=== PATIENT | female | born 1985 | race Caucasian/White ===

== ENCOUNTER 2016-11-04 15:27 | Emergency (ER) | payer OTHER, SELFPAY | END 2016-11-04 20:28 | disposition home or self-care (01) | LOC: FER 15:27 | DX: R51 Headache (principal) | CPT/HCPCS: 70450; J1100; J1885; J2800 ==

== ENCOUNTER 2021-07-05 14:00 | Inpatient (IN) | payer OTHER ==
[~2021-07-05] VITALS: Ht 160 cm; Wt 73.7 kg
[2021-07-05 16:28] LABS: BASOPHIL 0 % (0-2); EOSINOPHIL 0 % (0-5); HCT 41.8 % (37.0-47.0); HGB 13.9 g/dl (12.5-16.0); MCH 30.6 pg (25.0-31.0); MCHC 33.3 g/dL (32.0-36.0); MCV 92.1 fL (78.0-100.0); MONOCYTE 2.4 % (0-12); MPV 10.4 fL (6.0-9.5); NEUTROPHIL 83.1 % (41-80); NRBC 0; PLT 242 K/uL (150-400); RBC 4.54 M/uL (4.20-5.40); RDW 12.1 % (11.5-14.0)
[2021-07-05 16:29] LABS: LYMPHOCYTE 14.1 % (15-48)
[2021-07-05 16:59] LABS: BILIRUBIN NEGATIVE (NEGATIVE); BLOOD TRACE-INTACT Ery/uL (NEGATIVE); CLARITY CLEAR (CLEAR); COLOR YELLOW (YELLOW); GLUCOSE (U) NORMAL (NORMAL); LEUKOCYTES NEGATIVE Leu/uL (NEGATIVE); NITRITE NEGATIVE (NEGATIVE); PROTEIN NEGATIVE (NEGATIVE); SPECIFIC GRAVITY <=1.005 (1.001-1.030); UROBILINOGEN 0.2 mg/dL (0.2-1.0); pH 6.5 (5.0-9.0)
[2021-07-05 17:05] LABS: BACTERIA TRACE; URINARY WBC RARE
[2021-07-05 17:16] LABS: ALBUMIN 3.6 g/dL (3.4-5.0); BILIRUBIN - TOTAL 0.4 mg/dL (0.2-1.0); BUN/CREAT RATIO (CALC) 11.1 RATIO; CREATININE 0.63 mg/dL (0.51-0.95); GLOBULIN (CALCULATION) 4.1 g/dL; POTASSIUM 3.6 mmol/L (3.5-5.1); TOTAL PROTEIN 7.7 g/dL (6.4-8.2)
[2021-07-05] MEDS ORDERED: BUSPAR5 MG PO (21:10)
[2021-07-05] MEDS ORDERED: SINEQUAN10 MG PO (21:12)
[2021-07-05 21:24] LABS: INFLUENZA A NAA NEGATIVE (NEGATIVE)
[2021-07-05 21:25] LABS: CORONAVIRUS 2019 SARS-COV-2 POSITIVE (NEGATIVE)
[2021-07-06 06:37] LABS: BASOPHIL 0 % (0-2); EOSINOPHIL 0 % (0-5); HCT 37.9 % (37.0-47.0); HGB 12.4 g/dl (12.5-16.0); LYMPHOCYTE 17.3 % (15-48); MCH 30.2 pg (25.0-31.0); MCHC 32.7 g/dL (32.0-36.0); MCV 92.4 fL (78.0-100.0); MONOCYTE 3.8 % (0-12); MPV 10.6 fL (6.0-9.5); NEUTROPHIL 78.3 % (41-80); NRBC 0; PLT 223 K/uL (150-400); RDW 12.3 % (11.5-14.0); WBC 3.4 K/uL (4.0-10.5)
[2021-07-06 07:38] LABS: ALBUMIN 2.7 g/dL (3.4-5.0); BILIRUBIN - TOTAL 0.3 mg/dL (0.2-1.0); BUN/CREAT RATIO (CALC) 12.2 RATIO; C-REACTIVE PROTEIN 12.3 mg/dL (<=0.90); CREATININE 0.49 mg/dL (0.51-0.95); GLOBULIN (CALCULATION) 3.6 g/dL; MAGNESIUM 2.2 mg/dL (1.8-2.4); POTASSIUM 4.2 mmol/L (3.5-5.1); TOTAL PROTEIN 6.3 g/dL (6.4-8.2)
[2021-07-06 12:45] LABS: HCG (URINE) SCREEN NEGATIVE (NEGATIVE)
[2021-07-07 06:18] LABS: BASOPHIL 0.1 % (0-2); EOSINOPHIL 0 % (0-5); HCT 36.7 % (37.0-47.0); HGB 11.9 g/dl (12.5-16.0); LYMPHOCYTE 11.4 % (15-48); MCH 30.3 pg (25.0-31.0); MCHC 32.4 g/dL (32.0-36.0); MCV 93.4 fL (78.0-100.0); MONOCYTE 5.8 % (0-12); MPV 10.8 fL (6.0-9.5); NRBC 0; PLT 270 K/uL (150-400); RBC 3.93 M/uL (4.20-5.40); RDW 12.7 % (11.5-14.0)
[2021-07-07 06:20] LABS: WBC 8.4 K/uL (4.0-10.5)
[2021-07-07 06:53] LABS: ALBUMIN 2.5 g/dL (3.4-5.0); BILIRUBIN - TOTAL 0.2 mg/dL (0.2-1.0); BUN/CREAT RATIO (CALC) 15.7 RATIO; CREATININE 0.51 mg/dL (0.51-0.95); GLOBULIN (CALCULATION) 3.3 g/dL; POTASSIUM 3.5 mmol/L (3.5-5.1); TOTAL PROTEIN 5.8 g/dL (6.4-8.2)
--- NOTE | 2021-07-07 13:07 | NUR ---
07/07/21 Ms. Love lives at home with her spouse. Will monitor for 02 needs at discharge.
--- NOTE | 2021-07-09 01:49 | NUR ---
IV MEDS LATE D/T PUMP ISSUES.
[2021-07-09 05:21] LABS: BASOPHIL 0.2 % (0-2); EOSINOPHIL 0 % (0-5); HCT 40.4 % (37.0-47.0); LYMPHOCYTE 7.1 % (15-48); MCH 30.4 pg (25.0-31.0); MCHC 32.2 g/dL (32.0-36.0); MCV 94.6 fL (78.0-100.0); MONOCYTE 3.2 % (0-12); MPV 11.6 fL (6.0-9.5); NRBC 0; RBC 4.27 M/uL (4.20-5.40); RDW 12.9 % (11.5-14.0)
[2021-07-09 05:22] LABS: PLT 158 K/uL (150-400)
[2021-07-09 06:00] LABS: ALBUMIN 2.4 g/dL (3.4-5.0); BILIRUBIN - TOTAL 0.5 mg/dL (0.2-1.0); BUN/CREAT RATIO (CALC) 22.5 RATIO; CREATININE 0.4 mg/dL (0.51-0.95); GLOBULIN (CALCULATION) 4.1 g/dL; POTASSIUM 3.8 mmol/L (3.5-5.1); TOTAL PROTEIN 6.5 g/dL (6.4-8.2)
--- NOTE | 2021-07-11 14:09 | NUR ---
07/01/21 02 at 3L was ordered from [facility] in anticipation of dc on 07/12 per patient choice.
[2021-07-12] MEDS ORDERED: PROTONIX 40MG T40 MG PO (12:38)
[2021-07-12] MEDS ORDERED: DEXAMETHASONE 2M2 MG PO (12:38)
[2021-07-12] MEDS ORDERED: VENTOLIN HFA IN18 GM INH (12:38)
== END 2021-07-12 14:25 | disposition home or self-care (01) | DRG 871 ==
LOC: FER 14:00 → FMS 20:19
PROVIDERS: Nurse Practitioner; Nurse Practitioner Family; ADMIT Internal Medicine
PROC: 8E0ZXY6 Isolation (ICD-10-PCS; principal; 2021-07-05)
PROC: XW033E5 Introduction of Remdesivir Anti-infective into Peripheral Vein, Percutaneous Approach, New Technology Group 5 (ICD-10-PCS; 2021-07-05)
PROC: XW0DXM6 Introduction of Baricitinib into Mouth and Pharynx, External Approach, New Technology Group 6 (ICD-10-PCS; 2021-07-07)
DX: A41.89 Other specified sepsis (principal); U07.1 COVID-19; J12.82 Pneumonia due to coronavirus disease 2019; J96.01 Acute respiratory failure with hypoxia; J18.9 Pneumonia, unspecified organism; E87.1 Hypo-osmolality and hyponatremia; R65.20 Severe sepsis without septic shock; F41.8 Other specified anxiety disorders; Z98.890 Other specified postprocedural states
CPT/HCPCS: 36415; 36600; 71045; 71275; 80053; 81001; 82728; 82803; 83036; 83605; 83615; 83735; 84100; 84145; 84703; 85025; 85379; 86140; 87449; 94010; 94640; 94760; 94762; C9399; J0456; J0696; J1100; J1650; J7030; J7050; J8540; Q9967; U0002